=== PATIENT | female | born 1940 ===

== ENCOUNTER → 2023-01-04 10:41 | Outpatient (BNVA) | payer MEDICARE, OTHER, SELFPAY | PROVIDERS: PCP Internal Medicine; Visit Provider Internal Medicine | DX: R00.2 Palpitations (principal); I49.1 Atrial premature depolarization; I49.3 Ventricular premature depolarization; I47.1 Supraventricular tachycardia | CPT/HCPCS: 93225 ==

== ENCOUNTER 2024-11-21 08:41 | Outpatient (CLI) | payer MEDICARE, OTHER, SELFPAY ==
--- NOTE | 2024-11-21 08:47 | FL_ITS ---
WS: [id number] Exam: FL barium swallow modifd [id number] Date/Time of Exam: 11/21/2024 9:02 AM Reason For Exam: Other dysphagia Fluoroscopy time: 7min [id number] minutes # of spot films: 0 Modified barium swallow test is performed in conjunction with the speech therapy service. Oropharyngeal phase of swallowing was normal. The patient tolerated all consistencies of barium mixture foodstuffs without penetration or aspiration. There appears to be a Zenker's diverticulum along the posterior margin of the cervical esophagus at the level of C7 which contains food debris. It is also noted that there is generalized dilatation of the esophagus with tapering extending to the GE junction suggesting achalasia. The patient swallowed a barium tablet without difficulty however the tablet was retained in the mid and lower esophagus. The tablet was finally propelled into the stomach after multiple drinks of thin liquid barium. To and fro spasm of the esophagus with reflux was observed. FL/FL barium swallow modifd [id number] IMPRESSION: 1. No aspiration or penetration identified. 2. 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 3. Findings in the esophagus to suggest achalasia and gastroesophageal reflux. 4. Barium tablet was retained in the esophagus for a significant amount of time . See above discussion. Endoscopic evaluation of the esophagus is recommended f or further work-up. A separate report with recommendations will follow from the speech therapy serv ice.
== END 2024-11-21 08:42 | disposition home or self-care (01) ==
PROVIDERS: PCP Nurse Practitioner Family; Visit Provider Nurse Practitioner Family
DX: R13.10 Dysphagia, unspecified (principal); K22.5 Diverticulum of esophagus, acquired; R93.89 Abnormal findings on diagnostic imaging of other specified body structures; K22.4 Dyskinesia of esophagus
CPT/HCPCS: 74230; 92611

== ENCOUNTER 2025-03-27 10:03 | Outpatient (CLI) | payer MEDICARE, OTHER, SELFPAY ==
--- NOTE | 2025-03-27 10:30 | CT_ITS ---
WS: [id number] CT NECK TECHNIQUE: Contrast-enhanced CT of the neck with coronal and sagittal reformatted images. CLINICAL INFORMATION: DYSPHAGIA COMPARISON: None. DLP: 131.[address] scans at [facility] use at least one of these dose optimization techniques: automated exposure control; mA and/or kV adjustment per patient size (includes targeted exams where dose is matched to clinical indication); or iterative reconstruction. FINDINGS: Partially visualized LEFT pterional craniotomy with encephalomalacia in the LEFT anterior temporal lobe. Dental artifact degrades images at the tongue base. Normal posterior nasopharynx. Normal parapharyngeal fat. Paranasal sinuses are well aerated. Mastoid air cells are well aerated. No evidence of supraglottic or glottic mass. Subglottic airway is patent. Patulous thoracic esophagus visualized at the thoracic inlet likely due to achalasia also seen on the recent barium study. Parotid glands are normal. Normal submandibular glands. Tiny bilateral thyroid nodules. Vascular calcification. No cervical lymphadenopathy.Ankylosis lower cervical and upper thoracic spine with slight indentation on the thoracic esophagus at the thoracic inlet. Partially visualized Zenker's diverticulum with air-fluid level better evaluated on the prior barium study CT/CT neck w con* [id number] IMPRESSION: 1. Patulous thoracic esophagus suggestive of achalasia. 2. Partially evaluated Zenker's diverticulum better evaluated on the barium st udy. Associated air-fluid level. 3. Normal salivary glands. 4. No evidence of supraglottic or glottic mass. 5. Numerous subcentimeter nodules in the thyroid. 6. 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
[2025-03-27 10:40] LABS: Blood Urea Nitrogen 18 mg/dL (8-23)
[2025-03-27] MEDS: iohexol 350 mg/mL 500 mL Btl (per mL) IV (10:46)
== END 2025-03-27 10:04 | disposition home or self-care (01) ==
LOC: RAD 10:05
PROVIDERS: PCP Nurse Practitioner Family; Visit Provider Otolaryngology
DX: R13.14 Dysphagia, pharyngoesophageal phase (principal); R49.0 Dysphonia; K22.5 Diverticulum of esophagus, acquired; K21.9 Gastro-esophageal reflux disease without esophagitis; K22.89 Other specified disease of esophagus; E04.2 Nontoxic multinodular goiter; M45.4 Ankylosing spondylitis of thoracic region
CPT/HCPCS: 70491; 82565; 84520

== ENCOUNTER 2025-04-15 09:10 | Inpatient (IN) | payer MEDICARE, OTHER, SELFPAY ==
[2025-04-15] VITALS (35 sets, daily range): BP systolic 106–216; BP diastolic 62–122; PULSE 61–74; RESP 14–38; TEMP 36.3–36.8; O2SAT 94–99; BMI 22.1; BMI 25.5
--- NOTE | 2025-04-15 10:04 | ECG_ITS ---
[facility] Test Date: 2025-04-15 Pat Name: Robina Bowen Department: Room: Gender: Female Emergency Specialist: : 1940 Requested By: Sudhir Ron Order Number: [id number] Monteiro MD: Charlie Tellez M.D. Measurements Intervals [place] Rate: 59 P: 34 IN: 138 QRS: 1 QRSD: 98 T: 47 QT: 395 QTc: 392 Interpretive Statements SINUS BRADYCARDIA No previous ECG available for comparison Electronically Signed On 04-15-2025 17:05:14 CDT by Charlie Tellez M.D. [id number]
[2025-04-15 10:10] LABS: Hematocrit 43.7 % (36-47); Hemoglobin 13.90 g/dL (11.27-16.99); Mean Corpuscular HGB Conc 31.8 g/dL (30-55); Mean Corpuscular Hemoglobin 29.8 pg (27-33); Mean Corpuscular Volume 93.8 fl (85-98); Nucleated Red Blood Cells % 0 %; Platelet Count 284 10^3/cmm (157-399); Red Blood Count 4.66 10^6/uL (3.85-5.65); White Blood Count 8.04 10^3/uL (3.29-11.43)
--- NOTE | 2025-04-15 10:18 | ED_ITS ---
HPI - General Adult 2 General: Chief complaint: General Medical Stated complaint: High Blood Pressure Time Seen by Provider: 04/15/25 09:51 History of Present Illness: Chief complaint is elevated blood pressure. Patient states that she has been under stress due to family illness. She states she checked her blood pressure today and it was elevated. She used to be on lisinopril 5 mg daily but they took her off it because her blood pressure was good. She states she feels fine. No headache or chest pain or shortness of breath. No abdominal pain. She states she does have a long history of a hiatal hernia and she has had intermittent pain in her left chest and left shoulder blade that feels like indigestion but she states she has had that off-and-on for many years and knows what that feels like. No change from her normal symptoms. No migration of pain up or down. No pleurisy. She has some mild swelling in her ankles which she states she has every summer and is unchanged. No focal numbness weakness or tingling her arms or legs. She has had swallowing issues that she has been dealing with for a long time and has a extra pouch and she sees ENT tomorrow. She states has been going on since September and is nothing new but bothers her a lot and she thinks makes her blood pressure go up. She has had some urinary burning. Related Data Allergies Allergy/AdvReac Type Severity Reaction Status Date / Time nitrofurantoin Allergy Unknown Verified 04/15/25 09:36 Sulfa (Sulfonamide Allergy Unknown Verified 04/15/25 09:36 Antibiotics) Physical Exam 2 Narrative: EXAM NARRATIVE: Alert oriented talkative no acute distress. Pupils equal reactive. Full range ocular motion. Neck is supple. Moist mucous membranes. Posterior pharynx is clear. Heart regular rhythm with murmur. Lung sounds are clear. Abdomen soft nontender. Extremities warm well-perfused. No calf tenderness. She has some mild swelling of her ankles but no swelling above that. No drift in her arms or legs. No facial droop. Speech is clear. No JVD. Rash is warm and dry. Intact cerebellar function. No ataxia. No findings on exam or history to suggest acute stroke. Patient feels his elevated blood pressure is due to stress which may be the case. Will check her renal function and check CBC basic metabolic panel and she has some urinary symptoms so we will check UA and EKG and troponin. Patient EKG to my interpretation shows sinus bradycardia with rate 59 bpm. Course 2 Vital Signs: Vital signs: Vital Signs Temperature 97.4 F L 04/15/25 09:21 Pulse Rate 61 04/15/25 14:30 Respiratory Rate 27 H 04/15/25 14:30 Blood Pressure 194/104 04/15/25 14:30 Pulse Oximetry 99 04/15/25 14:30 Oxygen Delivery Me thod Room Air 04/15/25 09:21 MDM - General Adult Medical Decision Making Patient presents complaining that her blood pressure is elevated. Patient initial blood pressure was mildly elevated however subsequent blood pressures trended up even higher. Patient denies any chest pain or shortness of breath but when I ask about she does admit she has had some indigestion and feeling of some discomfort in her left chest and left shoulder blade but states she has had that for many years and knows exactly what it feels like it is from her hiatal hernia. She denies any new pain or shortness of breath. She states she has been under stress because she has difficulty swallowing and she is seeing ENT tomorrow. That is also been going on since early this year and is not new or changed. Denies loss of bowel or bladder control or new numbness weakness or tingling in her arms or legs. Denies any abdominal pain. Denies fever. Denies headache. Patient given a clonidine. Blood pressure still was trending up so given hydralazine 10 mg IV with improvement. I added D-dimer and this was significantly elevated so I ordered CT angio. CBC CMP troponin EKG ordered. EKG shows sinus bradycardia to my interpretation. White count is normal. Troponin was not elevated at 12. Creatinine was 0.8. Delta troponin and CT angio are pending. Urinalysis had 1+ leukocytes but not significant findings of infection. Patient troponin trended up concerning for non-STEMI with her chest pain. Patient's blood pressure did improve with the hydralazine but has trended back up again. I ordered another dose of hydralazine. I ordered aspirin 3 and [address] her CT angio did not show evidence of dissection or PE. She did have pulmonary nodule which I advised patient and family she needs to follow-up on. Her troponin trended up. I discussed with her heparin. 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 She states she is not having any headache. She states she has some slight sinus pressure but nothing that is abnormal for her or concerning to her. She does want to proceed with heparin after informed discussion of risk and benefit including GI bleeding, intracranial hemorrhage, other bleeding, and . Patient currently is pain-free. She is not having any further chest pain. She did have an episode of chest pain earlier while she was here in the emergency department but that resolved. I ordered nitroglycerin paste as well after consultation with Dr. Tellez who requested that she be kept n.p.o. after midnight and nitroglycerin 1 inch of paste every 6 hours and as needed hydralazine to control her blood pressure. Patient's heart rate currently is 65 so we will avoid labetalol currently. I discussed with Dr. Hsieh who will admit and continue patient care. Lab Data 04/15/25 10:04 04/15/25 10:04 Radiology Impressions Chest/Abdomen CTA 04/15/25 12:39 IMPRESSION: 1. No aortic pathology. 2. No acute findings. 3. Spiculated 6 mm right upper lobe nodule raises suspicion for malignancy. See references. COMMENTS: Consistent with the [place]'s Incidental Findings Committee white paper (J Am Keyana Radiol 2018): Any incidental renal lesion less than 1 cm or classified as too small to characterize, or any incidental cystic renal lesion characterized as simple-appearing, is likely benign. No follow-up imaging is recommended for these lesions per consensus recommendations based on imaging criteria. REFERENCES: Tima Melton, et al. Guidelines for Management of Incidental Pulmonary Nodules Detected on CT Images: From the Fleischner Society 2017. Radiology. 2017;284(1):228-243. Laboratory Results WBC 8.04 10^3/uL (3.29-11.43) 04/15/25 10:04 RBC 4.66 10^6/uL (3.85-5.65) 04/15/25 10:04 Hgb 13.90 g/dL (11.27-16.99) 04/15/25 10:04 Hct 43.7 % (36-47) 04/15/25 10:04 MCV 93.8 fl (85-98) 04/15/25 10:04 MCH 29.8 pg (27-33) 04/15/25 10:04 MCHC 31.8 g/dL (30-55) 04/15/25 10:04 RDW 14.2 % (12.1-15.1) 04/15/25 10:04 Plt Count 284 10^3/cmm (157-399) 04/15/25 10:04 MPV 9.7 fL (7.4-10.4) 04/15/25 10:04 Neut % (Auto) 55.9 % 04/15/25 10:04 Lymph % (Auto) 34.0 % 04/15/25 10:04 Grainger % (Auto) 8.1 % 04/15/25 10:04 Eos % (Auto) 1.4 % 04/15/25 10:04 Baso % (Auto) 0.4 % 04/15/25 10:04 Neut # (Auto) 4.50 10^3/uL (1.8-7.7) 04/15/25 10:04 Lymph # (Auto) 2.7 10^3/uL (0.8-4.8) 04/15/25 10:04 Grainger # (Auto) 0.7 10^3/uL (0.2-0.9) 04/15/25 10:04 Eos # (Auto) 0.1 10^3/uL (0.0-0.8) 04/15/25 10:04 Baso # (Auto) 0.0 10^3/uL (0.0-0.1) 04/15/25 10:04 Nucleated RBC % (auto) 0 % 04/15/25 10:04 Nucleated RBCs # 0.0 /100WBC 04/15/25 10:04 D-Dimer 3.06 ug/mLFEU (0-0.59) H 04/15/25 10:04 Sodium 143 mmol/L (136-145) 04/15/25 10:04 Potassium 4.1 mmol/L (3.5-5.1) 04/15/25 10:04 Chloride 106 mmol/L (98-107) 04/15/25 10:04 Carbon Dioxide 26 mmol/L (22-29) 04/15/25 10:04 Anion Gap 15.1 (5-19) 04/15/25 10:04 BUN 17 mg/dL (8-23) 04/15/25 10:04 Creatinine 0.8 mg/dL (0.5-0.9) 04/15/25 10:04 GFR Calculation Not Reportable 04/15/25 10:04 Glucose 106 mg/dL (65-115) 04/15/25 10:04 Calculated Osmolality 298 mOsm/kg (285-295) H 04/15/25 10:04 Calcium 10.1 mg/dL (8.5-10.5) 04/15/25 10:04 Troponin T Baseline 12 ng/L (0-10) H 04/15/25 10:04 Troponin T 120 Minute 41.21 ng/L (0-10) H 04/15/25 12:12 Delta Troponin T 29.21 ABS# (0-10) H* 04/15/25 12:12 Urine Color Yellow (Yellow) 04/15/25 09:58 Urine Appearance Clear (CLEAR) 04/15/25 09:58 Urine pH 7 (5-7) 04/15/25 09:58 Ur Specific [place] 1.007 (1.005-1.030) 04/15/25 09:58 Urine Protein Negative (Negative) 04/15/25 09:58 Urine Glucose (UA) Norm (Normal) 04/15/25 09:58 Urine Ketones Negative (Negative) 04/15/25 09:58 Urine Blood Non-haemolysed trace (Negative) 04/15/25 09:58 Urine Nitrate Negative (Negative) 04/15/25 09:58 Urine Bilirubin Negative (Negative) 04/15/25 09:58 Urine Urobilinogen 1.0 mg/dL (Negative) 04/15/25 09:58 Ur Leukocyte Esterase 1+ (Negative) H 04/15/25 09:58 Urine RBC None /hpf (0-2) 04/15/25 09:58 Urine WBC 0-4 /hpf (0-5) H 04/15/25 09:58 Ur Squamous Epith Cells 0-4 /hpf (0-5) H 04/15/25 09:58 Amorphous Sediment Not Reportable 04/15/25 09:58 Urine Bacteria Trace /hpf (NONE) 04/15/25 09:58 All radiology interpretation(s) finalized by discharge Discharge Plan Discharge Patient Disposition: Admitted As Inpatient Clinical Impression: Acute non-ST elevation myocardial infarction (NSTEMI), Hypertensive crisis, Pulmonary nodule Condition: Stable Coding Level of Care Code ED Code Enforcement Officer for Eunice Stapleton
[2025-04-15 10:29] LABS: Troponin(5th) Baseline 12 ng/L (0-10)
[2025-04-15 10:33] LABS: Glucose Urine UA Norm (Normal); Specific Gravity, Urine 1.007 (1.005-1.030)
[2025-04-15 10:34] LABS: Anion Gap 15.1 (5-19); Blood Urea Nitrogen 17 mg/dL (8-23); Calcium 10.1 mg/dL (8.5-10.5); Carbon Dioxide 26 mmol/L (22-29); Chloride 106 mmol/L (98-107); Glucose 106 mg/dL (65-115); Osmolality Calculated 298 mOsm/kg (285-295); Potassium 4.1 mmol/L (3.5-5.1); Sodium 143 mmol/L (136-145)
[2025-04-15 10:34] LABS: Nitrate Urine Negative (Negative)
[2025-04-15] MEDS: hyDRALAzine 20 mg/mL INJ 1 mL 10 MG IVP ×2 (11:49→15:28)
--- NOTE | 2025-04-15 12:39 | CTR_ITS ---
PROCEDURE INFORMATION: Exam: CTA Chest With Contrast CTA Abdomen With Contrast Exam date and time: 04/15/2025 12:55 PM Age: 85 years old Clinical indication: Radiating; Abdominal pain; Generalized; Additional info: Chest pain, aorta protocol TECHNIQUE: Imaging protocol: Computed tomographic angiography of the chest with contrast. Exam focused on the arteries. Computed tomographic angiography of the abdomen with contrast. Exam focused on the arteries. 3D rendering (Not supervised by radiologist): MIP and/or 3D reconstructed images were created by the technologist. Radiation optimization: All CT scans at this facility use at least one of these dose optimization techniques: automated exposure control; mA and/or kV adjustment per patient size (includes targeted exams where dose is matched to clinical indication); or iterative reconstruction. Contrast material: OMNIPAQUE 350; Contrast volume: 100 ml; Contrast route: INTRAVENOUS (IV); COMPARISON: No relevant prior studies available. RADIATION DOSE METRICS: Total DLP (mGy-cm): 943.5 FINDINGS: VASCULATURE: Pulmonary arteries: Normal. No pulmonary emboli. Aorta: No aortic aneurysm. No aortic dissection. Celiac trunk and mesenteric arteries: No occlusion or significant stenosis. Renal arteries: No occlusion or significant stenosis. CHEST: Lungs: Spiculated 6 mm right upper lobe nodule image 49 series 24. For patients at low risk (minimal or absent history of smoking and of other known risk factors), recommend CT Chest at 6-12 months, then consider CT Chest at 18-24 months. For patients at high risk (history of smoking or of other known risk factors), recommend CT Chest at 6-12 months, then CT Chest at 18-24 months. (Reference: Tima). Calcified 6 mm left upper lobe granuloma. Image 41 series 23. Pleural spaces: Unremarkable. No pneumothorax. No pleural effusion. Heart: Unremarkable. No cardiomegaly. No pericardial effusion. ABDOMEN AND PELVIS: Liver: No mass. Gallbladder and biliary ducts: Post cholecystectomy. Pancreas: Unremarkable. No mass. No ductal dilation. Spleen: There is a solitary splenic calcification consistent with an old calcified granuloma. Adrenal glands: Unremarkable. No mass. Kidneys: There are multiple simple renal cysts bilaterally of varying size. Stomach and bowel: Unremarkable. No obstruction. No mucosal thickening. Intraperitoneal space: Unremarkable. No free air. No significant fluid collection. Lymph nodes: Unremarkable. No enlarged lymph nodes. Bones/joints: Unremarkable. No acute fracture. Soft tissues: Unremarkable. CT/CT angio chest abd 94418/[id number] IMPRESSION: 1. No aortic pathology. 2. No acute findings. 3. Spiculated 6 mm right upper lobe nodule raises suspicion for malignancy. See references. COMMENTS: Consistent with the [employer] [employer]'s Incidental Findings Committee white paper (J Am Keyana Radiol 2018): Any incidental renal lesion less than 1 cm or classified as too small to characterize, or any incidental cystic renal lesion characterized as simple-appearing, is likely benign. No follow-up imaging is recommended for these lesions per consensus recommendations based on imaging criteria. REFERENCES: Tima H, et al. Guidelines for Management of Incidental Pulmonary Nodules Detected on CT Images: From the Fleischner Society 2017. Radiology. 2017;284(1):228-243.
[2025-04-15 12:52] LABS: Troponin 5 2HR 41.21 ng/L (0-10)
[2025-04-15 12:54] LABS: Troponin 5 2HR Delta 29.21 ABS# (0-10)
[2025-04-15] MEDS: iohexol 350 mg/mL 500 mL Btl (per mL) IV (13:02)
[2025-04-15] MEDS: heparin drip 25,000 UNIT/500 ML PREMIX 18 UNIT IV (15:49)
[2025-04-15] MEDS: heparin 5,000 unit/mL INJ 1 mL IVP (15:50)
[2025-04-15] MEDS: nitroglycerin 1 gm/inch oint Pkt 1 INCH TOPICAL (15:50)
--- NOTE | 2025-04-15 15:51 | PC.NURSE ---
PATIENT WEIGHT OF 137 LB, 62.27 KG, ROUNDED DOSING TO 64 KG.
--- NOTE | 2025-04-15 16:03 | PM.HP ---
Providers/Chief Complaint Primary Care Provider: CAIO Higgins Chief Complaint: High Blood Pressure History of Present Illness Robina Bowen is a 85 year old female with history of hypertension And previously used to be on lisinopril however no longer takes it as her doctor took her off presented to the hospital today for complaint of very high blood pressure that she incidentally noted. She states she has been under a lot of family stress lately and has been checking it every day. She checked it yesterday and it was high around 170 systolic and this morning it was 200 systolic. She states that she does have a hiatal hernia and has been having some on and off chest pain and usually has indigestion however she knows what that feels like and today she experienced chest tightness which was new for her. She has not really had chest tightness like this before. This chest tightness was also radiating up to her shoulder blade. She has also noticed some swelling in her ankles which is at her baseline. She is not on any Lasix at home. She states she has a abnormal neck CT with possible diverticulum that she has been completing workup for as an outpatient and was supposed to see ENT tomorrow 04/16. Now that she is in the hospital she has canceled that appointment. Denies active chest pain at this time shortness of breath nausea vomiting. She does state that due to her throat issue she sometimes regurgitates food and has a constant postnasal drip and her throat feels raspy because of it. Family is at bedside. Daughter and [id number] are both present. They aided in providing history. Patient is a somewhat poor historian. ER course: On arrival to ER blood pressure 216/119. Patient was initially managed in the ER and received hydralazine 10 IV x 2 and was eventually placed on a nitro patch every 6 hours. Initial troponin 12, 41.21, 73.66. Delta Trope 61 at 6 hours. Cardiology was consulted. D-dimer 3.06. CTA chest abdomen shows no aortic pathology no acute findings spiculated 6 mm right upper lung nodule raise suspicion for malignancy. Medications/Allergies Home Medications ?Medication ?Instructions ?Recorded ?Confirmed ?Last Taken ?Type acetaminophen 325 mg tablet 650 mg PO QID PRN Fever Or Pain 04/15/25 04/15/25 Unknown History (Tylenol) aspirin 81 mg tablet,delayed 81 mg PO DAILY 04/15/25 04/15/25 04/14/25 History release (Christian Low Dose Aspirin) fexofenadine 60 mg tablet (Verenice 60 mg PO BID PRN allergies 04/15/25 04/15/25 Unknown History Allergy) metoprolol succinate 50 mg 50 mg PO DAILY 04/15/25 04/15/25 04/13/25 History tablet,extended release 24 hr krhvbmtv-ery-ahwng ac 400 1 tab PO DAILY 04/15/25 04/15/25 Unknown History mcg-calcium carb 500 mg-vit K1 20 mcg tablet pantoprazole 40 mg tablet,delayed 40 mg PO DAILY 04/15/25 04/15/25 04/14/25 History release Allergies Allergy/AdvReac Type Severity Reaction Status Date / Time nitrofurantoin Allergy Unknown Verified 04/15/25 09:36 Sulfa (Sulfonamide Allergy Unknown Verified 04/15/25 09:36 Antibiotics) Vitals/I&O/Wt Last Vital Signs Temp 97.4 F L 04/15/25 09:21 Pulse 68 04/15/25 15:50 Resp 27 H 04/15/25 14:30 BP 154/74 04/15/25 15:50 Pulse Ox 99 04/15/25 14:30 O2 Del Method Room Air 04/15/25 09:21 Weight last 48 hrs Weight 62.142 kg Physical Exam Narrative: General: Alert oriented x3, patient seen sitting up in bed appearing comfortable at this time family at bedside. HEENT: Normocephalic, atraumatic, EOMI, breathing room air Cardio: Regular rate rhythm, normal S1-S2, Respiratory: Good bilateral air entry, no wheezes no rhonchi appreciated GI: Abdomen soft, nontender, nondistended, bowel sounds + Behavior: Appropriate and cooperative Extremities: Trace edema ankles bilaterally no cyanosis Data 04/15/25 10:04 04/15/25 10:04 A&P Assessment and plan 1. Acute non-ST elevation myocardial infarction (NSTEMI): 2. Hypertensive crisis: 3. Pulmonary nodule: 4. Zenkers diverticulum: 5. Achalasia: Plan: #Hypertensive urgency #Chest pain/chest tightness #NSTEMI #Zenker's diverticulum with food debris #Achalasia, GERD -Patient's elevated troponin most likely demand ischemia type II GA secondary to hypertensive urgency however cardiac ischemia cannot be ruled out. Placed on heparin drip x 48 hours ? Continue on aspirin, Plavix ? Discussed with cardiology at length. Plan to do cardiac stress test in AM. ? Keep n.p.o. at midnight tonight. ? Continue on oral soft bite-size diet at this time. Note patient will have recurrent regurgitation secondary to her Zenker's diverticulum. ? Recently was supposed to see ENT on 04/16 however appointment has been canceled. She will need to follow-up with them as an outpatient after discharge. ? GI referral also recommended at discharge secondary to achalasia. Patient may need balloon dilation. ? We will continue her GI workup outpatient ? Appreciate cardiology consultation today. ?Serial EKGs, troponin series complete ? Check CBC CMP mag in a.m. ? Hypertension: Goal to reduce only 25% in for 6 hours. ? We will continue on amlodipine 10 daily. I will stop Nitropatch at this time. ? Hydralazine 10 every 4 hours as needed ? Check TSH, lipid panel, hemoglobin A1c - Check ECHO - Add atorvastatin 80 Full code DVT prophylaxis: On heparin drip PDMP PDMP Reviewed: Not Reviewed Attestations Medical Necessity Statement*: Chest pain workup, NSTEMI, > 2 midnight stay Diagnoses Acute non-ST elevation myocardial infarction (NSTEMI) I21.4 Hypertensive crisis I16.9 Pulmonary nodule R91.1 Zenkers diverticulum K22.5 Achalasia K22.0
[2025-04-15 16:32] LABS: Troponin 5 6HR 73.66 ng/L (0-10)
[2025-04-15 16:36] LABS: Troponin 5 6HR Delta 61.66 ng/L (0-12)
--- NOTE | 2025-04-15 18:21 | USCV_ITS ---
Andrés Robina Age: 85 Gender: F : 1940 Exam Date: 04/15/2025 18:42 Ordering Phys: Isela Hsieh MD Technologist: Fran Landeros Exam Location: [facility] [place] Indication: chest pain, nstemi BP: 163 / 85 HR: 64 Rhythm: Sinus Technical Quality: Adequate MEASUREMENTS (Male / Female) Normal Values 2D ECHO LV Diastolic Diameter PLAX 4.7 cm 4.2 - 5.9 / 3.9 - 5.3 cm IVS Diastolic Thickness 0.9 cm 0.6 - 1.0 / 0.6 - 0.9 cm IVS Systolic Thickness 1.5 cm LVPW Diastolic Thickness 1.1 cm 0.6 - 1.0 / 0.6 - 0.9 cm LVPW Systolic Thickness 1.7 cm LVOT Diameter 2.0 cm LV Ejection Fraction 2D Teich 66.3 % LV Ejection Fraction MOD 4C 71.7 % LV Ejection Fraction MOD 2C 55.7 % LV Ejection Fraction 2C AL 59.2 % LA Diameter 3.8 cm RA Systolic Volume 4C AL 44.4 ml RA Systolic Volume 4C MOD 42.5 ml LA Sys Volume AL 49.4 cm cubed LA Sys Volume Index AL 29.0 cm cubed/m squared Aorta at Sinotubular Diameter 2.0 cm IVC Diameter 1.7 cm M-MODE LA Ao Ratio MM 1.8 AV Cusp Separation MM 1.7 cm DOPPLER AV Peak Velocity 141.0 cm/s LVOT Peak Velocity 82.0 cm/s AV Area Cont Eq vti 1.7 cm squared AV Area Cont Eq pk 1.8 cm squared MV Peak Velocity 105.0 cm/s MV Area PHT 2.1 cm squared Mitral E to A Ratio 0.7 TR Peak Velocity 272.0 cm/s TR Peak Gradient 29.6 mmHg TR Mean Velocity 229.0 cm/s TR Mean Gradient 21.8 mmHg TR Velocity Time Integral 81.5 cm PV Peak Velocity 76.3 cm/s RV Ejection Time 0.3 s FINDINGS Left Ventricle Normal left ventricular size, systolic function and wall thickness, with no regional wall motion abnormalities. Left ventricular ejection fraction is 66 %. Normal diastolic function. Right Ventricle Normal right ventricular size and systolic function. Right Atrium Normal right atrial size. Left Atrium Normal left atrial size. Mitral Valve Mild mitral valve regurgitation. Aortic Valve No aortic valve stenosis. Trace aortic valve regurgitation. Tricuspid Valve Trace tricuspid valve regurgitation. Normal pulmonary pressure Pulmonic Valve Mild pulmonary valve regurgitation. Pericardium No pericardial effusion. Aorta Normal size aortic root and proximal ascending aorta. IVC Normal inferior vena cava. CONCLUSIONS 1. Normal LV and RV size and function 2. Mild mitral valve regurgitaiton Charlie Tellez MD, FACC (Electronically Signed) Final Date: 16 April 2025 11:59 S
--- NOTE | 2025-04-15 18:25 | ECG_ITS ---
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
[2025-04-15 18:53] LABS: Estmated Average Glucose 111; Hemoglobin A1C 5.5 % (4.0-6.0)
[2025-04-15 19:03] LABS: Cholesterol 208 mg/dL (0-200); HDL Cholesterol 60 mg/dL (60-100); NT Pro B Type Natriuretic Pept 1198 pg/mL (0-450); Thyroid Stimulating Hormone 3.92 uIU/mL (0.27-4.20); Triglycerides 94 mg/dL (0-150)
[2025-04-15 22:17] LABS: INR 1.13 (0.8-1.2); Prothrombin Time 15.30 SECONDS (12.1-14.9)
[2025-04-15 22:30] LABS: Partial Thromboplastin Time 149.5 SECONDS (23.9-36.7)
[2025-04-15] MEDS: lidocaine 2% viscous 15 ML, aluminum-mag hydrox-simethicon 30 ML, sucralfate oral liq 1 GM PO (22:55)
[2025-04-16] VITALS (7 sets, daily range): BP systolic 125–157; BP diastolic 54–75; PULSE 58–77; RESP 16–19; TEMP 36.6; O2SAT 97–99
[2025-04-16] MEDS: ondansetron 2 mg/ML SDV 2 mL 4 MG IVP ×2 (01:59→08:00)
[2025-04-16 04:31] LABS: Hematocrit 37.8 % (36-47); Hemoglobin 12.70 g/dL (11.27-16.99); Mean Corpuscular HGB Conc 33.6 g/dL (30-55); Mean Corpuscular Hemoglobin 30.7 pg (27-33); Mean Corpuscular Volume 91.3 fl (85-98); Nucleated Red Blood Cells % 0 %; Platelet Count 256 10^3/cmm (157-399); Red Blood Count 4.14 10^6/uL (3.85-5.65); White Blood Count 8.60 10^3/uL (3.29-11.43)
[2025-04-16 05:08] LABS: Alanine Aminotransferase 8 U/L (0-33); Albumin Level 3.7 g/dL (3.5-5.2); Alkaline Phosphatase 27 U/L (35-105); Anion Gap 12.3 (5-19); Aspartate Amino Transferase 18 U/L (0-32); Blood Urea Nitrogen 14 mg/dL (8-23); Calcium 9.1 mg/dL (8.5-10.5); Carbon Dioxide 26 mmol/L (22-29); Chloride 100 mmol/L (98-107); Creatinine Clr Calc Pharmacy 48.1606; Globulin 3.1 g/dL (1.3-4.6); Glucose 110 mg/dL (65-115); Magnesium 1.9 mg/dL (1.7-2.3); Osmolality Calculated 281 mOsm/kg (285-295); Potassium 3.3 mmol/L (3.5-5.1); Sodium 135 mmol/L (136-145); Total Protein 6.8 g/dL (6.6-8.7)
[2025-04-16 06:12] LABS: Partial Thromboplastin Time 92.5 SECONDS (23.9-36.7)
--- NOTE | 2025-04-16 07:08 | PC.NURSE ---
Notified Dr. Bright regarding potassium of 3.3. Received orders for 40 meq of KCL once.
--- NOTE | 2025-04-16 07:52 | PC.NURSE ---
Patient off the floor to [facility]
--- NOTE | 2025-04-16 08:49 | PC.NURSE ---
Patient received to the floor. Dr Hsieh into see patient. Family at bedside.
[2025-04-16] MEDS: metoclopramide 5 mg/mL SDV 2 mL IVP (09:04)
--- NOTE | 2025-04-16 09:07 | PC.NURSE ---
Patient is nauseous. She received last dose of zofran at 0758. Informed Dr Hsieh and received telephone order for Reglan 5mg IVP x1 now.
--- NOTE | 2025-04-16 10:04 | P.CONIM_ITS ---
<Statement entered by Charlie Tellez MD - 04/16/25 13:39> Patient was evaluated and cared for in conjunction with an advanced practice practitioner. I personally examined the patient and reviewed the chart and all pertinent data including imaging, telemetry, and laboratory results. I discussed the patient in detail with the advanced practice practitioner. Please see their note for complete consult note, testing results and agreed upon plan of care for the patient. GENERAL: Patient is alert, awake and oriented x3. Laying flat in bed in NAD NECK: No JVD or carotid bruit HEART: Regular S1 and S2, no murmur LUNGS: Clear to auscultation bilaterally. EXTREMITIES: Lower extremities with out edema bilaterally. Stress test unremarkable. BP now controlled. Can be discharge on current medical regimen and fu in our office in 2 - 3 weeks with BP log Providers/Reason For Consult 2 Consulting Physician/Specialty*: Dr Tellez, cardiology Reason for Consult*: Elevated troponin, hypertensive urgency Requesting Physician: Isela Hsieh MD Attending Physician: Isela Hsieh MD Primary Care Provider: CAIO Higgins History of Present Illness History of Present Illness Robina Bowen is a 85 year old female with past medical history of hypertension, hiatal hernia. She presented to the emergency room yesterday after 1 week of consistently elevated blood pressure, systolic around 200. She had some chest tightness which was unusual. Troponin series: 12-> 41-> 73. D- dimer 3.06, other laboratory unremarkable. She received hydralazine which controlled her blood pressure initially, currently on aspirin, Plavix, atorvastatin, amlodipine 10 mg daily and heparin infusion. Echocardiogram and stress test are pending read. Medications/Allergies Home Medications ?Medication ?Instructions ?Recorded ?Confirmed ?Last Taken ?Type acetaminophen 325 mg tablet 650 mg PO QID PRN Fever Or Pain 04/15/25 04/15/25 Unknown History (Tylenol) aspirin 81 mg tablet,delayed 81 mg PO DAILY 04/15/25 0 04/15/25 04/14/25 History release (Christian Low Dose Aspirin) fexofenadine 60 mg tablet (Verenice 60 mg PO BID PRN al lergies 04/15/25 04/15/25 Unknown History Allergy) metoprolol succinate 50 mg 50 mg PO DAILY 04/15/2504/13/25 History tablet,extended release 24 hr gnldjvab-xwb-qvhgq ac 400 1 tab PO DAILY 04/15/2503/30 Unknown History mcg-calcium carb 500 mg-vit K1 20 mcg tablet pantoprazole 40 mg tablet,delayed 40 mg PO DAILY 04/1504/15/25 04/14/25 History release Allergies Allergy/AdvReac Type Severity Reaction Status Date / Time nitrofurantoin Allergy Unknown Verified 04/15/25 09:36 Sulfa (Sulfonamide Allergy Unknown Verified 04/15/25 09:36 Antibiotics) Current Medications Generic Name Dose Route Start Last Admin Trade Name Freq PRN Reason Stop Dose Admin Acetaminophen 650 mg 04/15/25 18:20 04/16/25 00:23 Acetaminophen 325 Mg Tablet PO 650 mg Q6H PRN Administration Mild/Mod Pain Or Temp >/= 101 Amlodipine Besylate 10 mg 04/16/25 09:00 04/16/25 08:41 Amlodipine 10 Mg Tablet PO 10 mg DAILY ROBIN Administration Aspirin 81 mg 04/16/25 09:00 04/16/25 08:41 Aspirin 81 Mg Ec Tablet PO 81 mg DAILY ROBIN Administration Atorvastatin Calcium 80 mg 04/15/25 21:00 04/15/25 22:54 Atorvastatin 40 Mg Tablet PO 80 mg BEDTIME ROBIN Administration Clopidogrel Bisulfate 75 mg 04/15/25 18:25 04/16/25 08:41 Clopidogrel 75 Mg Tablet PO 75 mg DAILY ROBIN Administration Heparin Sodium/Sodium Chloride 25,000 unit in 500 mls @ 0 mls/hr 04/15/25 15:30 04/16/25 06:26 Heparin Drip IV 8.85 unit/kg/hr CONT [facility] 11 mls/hr Protocol Titration Per Protocol Sodium Chloride 1,000 mls @ 75 mls/hr 04/15/25 18:30 04/16/25 07:52 Sodium Chloride 0.9% IV Not Given .[id number] [facility] Ondansetron HCl 4 mg 04/15/25 18:20 04/16/25 01:59 Ondansetron 2 Mg/Ml Sdv 2 Ml IVP 4 mg Q8H PRN Administration vomiting, or N/V if npo Ondansetron HCl 4 mg 04/16/25 06:22 04/16/25 08:00 Ondansetron 2 Mg/Ml Sdv 2 Ml IVP 4 mg Q2M PRN Administration NAUSEA Pantoprazole Sodium 40 mg 04/15/25 21:34 04/16/25 08:[address] 40 Mg Tablet PO 40 mg DAILY ROBIN Administration Vitals/I&O/Wt Last Vital Signs Temp 97.9 F 04/16/25 08:00 Pulse 77 04/16/25 09:29 Resp 16 04/16/25 09:29 BP 157/75 04/16/25 08:00 Pulse Ox 98 04/16/25 09:29 O2 Del Method Room Air 04/16/25 09:29 04/15/25 04/16/25 04/16/25 22:59 06:59 14:59 Intake Total 245.1 / 352.433 107.333 / 352.433 0 / 0 Balance 245.1 / 352.433 107.333 / 352.433 0 / 0 Weight last 48 hrs Weight 143 lb 4.8 oz Weight 144 lb 5 oz Weight 137 lb Weight 137 lb Physical Exam 2 Const: COMMON NORMALS: no acute distress and patient oriented x3 GENERAL APPEARANCE: cooperative and comfortable ORIENTATION/CONSCIOUSNESS: Yes awake, Yes oriented to person, Yes oriented to place and Yes oriented to time Chest: COMMONS NORMALS: normal inspection of the chest and normal palpation of entire chest wall CHEST: Yes Symmetrical chest wall rise Resp: COMMON NORMALS: normal respiratory effort, No retractions, No use of accessory muscles and clear to auscultation bilaterally EFFORT & INSPECTION: Yes symmetric chest movement AUSCULTATION: clear to auscultation bilaterally Cardio: COMMON NORMALS: regular rate, regular rhythm, S1 normal heart sound present, S2 normal heart sound present, No gallops present (Cardio), No clicks present (Cardio), No murmurs present (Cardio) and No rub (Cardio) RATE: r egular rate RHYTHM: regular rhythm HEART SOUNDS: S1 normal heart sound present and S2 normal heart sound present PERIPHERAL PULSES: radial pulses present Extremity: COMMON NORMALS: no pedal edema Neuro: COMMON NORMALS: patient oriented x3 and moves all extremities S ENSORIUM/ORIENTATION: Yes oriented to person, Yes oriented to place and Yes oriented to time Data 04/16/25 02:09 04/16/25 02:09 A&P Assessment and plan 1. Acute non-ST elevation myocardial infarction (NSTEMI): 2. Hypertensive crisis: 3. Pulmonary nodule: Plan: Blood pressure is currently controlled. She does not know of any particular triggers leading up to this hypertensive event. Will await results of imaging for further plan. At the time of my exam she is chest pain-free. PDMP PDMP Reviewed: Not Reviewed Coding Level of Care Code Acute Code for Chg Fwd Diagnoses Acute non-ST elevation myocardial infarction (NSTEMI) I21.4 Hypertensive crisis I16.9 Pulmonary nodule R91.1
--- NOTE | 2025-04-16 11:04 | P.PN_ITS ---
Subjective 2 Subjective: seen today pt complains of nausea after stress test Vitals/I&O/Wt Last Vital Signs Temp 97.9 F 04/16/25 08:00 Pulse 77 04/16/25 09:29 Resp 16 04/16/25 09:29 BP 157/75 04/16/25 08:00 Pulse Ox 98 04/16/25 09:29 O2 Del Method Room Air 04/16/25 09:29 04/15/25 04/16/25 04/16/25 22:59 06:59 14:59 Intake Total 245.1 / 245.1 107.333 / 352.433 0 / 0 Balance 245.1 / 245.1 107.333 / 352.433 0 / 0 Weight last 48 hrs Weight 65 kg Weight 65.459 kg Weight 62.142 kg Weight 62.142 kg Physical Exam 2 Narrative: General: Alert oriented x3, patient seen sitting up in bed appearing comfortable at this time family at bedside. HEENT: Normocephalic, atraumatic, EOMI, breathing room air Cardio: Regular rate rhythm, normal S1-S2, Respiratory: Good bilateral air entry, no wheezes no rhonchi appreciated GI: Abdomen soft, nontender, nondistended, bowel sounds + Behavior: Appropriate and cooperative Extremities: Trace edema ankles bilaterally no cyanosis Data 04/16/25 02:09 04/16/25 02:09 A&P Assessment and plan 1. Acute non-ST elevation myocardial infarction (NSTEMI): 2. Hypertensive crisis: 3. Pulmonary nodule: 4. Zenkers diverticulum: 5. Achalasia: Plan: #Hypertensive urgency #Chest pain/chest tightness #NSTEMI #Zenker's diverticulum with food debris #Achalasia, GERD -Patient's elevated troponin most likely demand ischemia type II RI secondary to hypertensive urgency however cardiac ischemia cannot be ruled out. Placed on heparin drip x 48 hours ? Continue on aspirin, Plavix ? Discussed with cardiology at length. Plan to do cardiac stress test in AM. ? Keep n.p.o. at midnight tonight. ? Continue on oral soft bite-size diet at this time. Note patient will have recurrent regurgitation secondary to her Zenker's diverticulum. ? Recently was supposed to see ENT on 04/16 however appointment has been canceled. She will need to follow-up with them as an outpatient after discharge. ? GI referral also recommended at discharge secondary to achalasia. Patient may need balloon dilation. ? We will continue her GI workup outpatient ? Appreciate cardiology consultation today. ?Serial EKGs, troponin series complete ? Check CBC CMP mag in a.m. ? Hypertension: Goal to reduce only 25% in for 6 hours. ? We will continue on amlodipine 10 daily. I will stop Nitropatch at this time. ? Hydralazine 10 every 4 hours as needed ? Check TSH, lipid panel, hemoglobin A1c - Check ECHO - Add atorvastatin 80 Full code DVT prophylaxis: On heparin drip 04/16/2025 pt nausated after stress test keep on clear liquids start clears as tolerated order scopolamine path echo pending continue heparin gtt x48 hours cardio consulted, appreciate recommendations continue amlodipine 10 daily BP 150's TSH 3.96, BNP 1198, stop IV fluids PDMP PDMP Reviewed: Not Reviewed Attestations 2 Medical Necessity Statement*: Chest pain workup, NSTEMI, > 2 midnight stay Diagnoses Acute non-ST elevation myocardial infarction (NSTEMI) I21.4 Hypertensive crisis I16.9 Pulmonary nodule R91.1 Zenkers diverticulum K22.5 Achalasia K22.0
[2025-04-16 12:35] LABS: Partial Thromboplastin Time 56.9 SECONDS (23.9-36.7)
--- NOTE | 2025-04-16 13:37 | PC.NURSE ---
Patient reports relief of nausea post scopalomine patch placement as documented.
--- NOTE | 2025-04-16 14:00 | PC.NURSE ---
Patient has been up ambulating and feels great. Has had juice. She reports feeling good. No nausea. Informed Dr Hsieh.
--- NOTE | 2025-04-16 14:10 | PC.NURSE ---
Heparin drip d/c for discharge. IV removed intact.
--- NOTE | 2025-04-16 15:46 | PM.DCS ---
Discharge Providers Date of Admission: 04/15/25 15:36 Date of Discharge: April 16, 2025 Attending Provider at Admission: Isela Hsieh MD Attending Provider at Discharge: Isela Hsieh MD Primary Care Provider: CAIO Higgins Diagnoses at Discharge Discharge Diagnosis 1. Acute non-ST elevation myocardial infarction (NSTEMI): 2. Hypertensive crisis: 3. Pulmonary nodule: 4. Zenkers diverticulum: 5. Achalasia: Reason for Visit Reason for Visit: High Blood Pressure Hospital Course Hospital Course Patient presented to the hospital with hypertensive urgency and chest tightness. Cardiology was consulted. Heparin drip was completed for 48 hours. He did have mild nausea after stress testing. Cardiac stress test was complete. He was discharged home in stable condition with adjustment of his home medications. She was discharged on amlodipine 10 daily and metoprolol succinate 50 daily. She will follow-up with cardiology as an outpatient. Physical Exam Narrative: General: Alert oriented x3, patient seen sitting up in bed appearing comfortable at this time family at bedside. HEENT: Normocephalic, atraumatic, EOMI, breathing room air Cardio: Regular rate rhythm, normal S1-S2, Respiratory: Good bilateral air entry, no wheezes no rhonchi appreciated GI: Abdomen soft, nontender, nondistended, bowel sounds + Behavior: Appropriate and cooperative Extremities: Trace edema ankles bilaterally no cyanosis Discharge Data Studies Completed and Pending Completed Studies During Hospitalization Category Date Time Status CTA chest abdomen [CT angio chest abd [id number]] Stat Cat Scan 04/15/25 12:39 Completed Sestamibi Stress Test Request Routine Exams 04/15/25 18:25 Draft NM sam perf SPECT r/s* [id number] Routine Nuc Med 04/16/25 18:25 Completed CV. echo complete* [id number] Stat Ultrasound 04/15/25 18:21 Completed Pending at discharge Category Date Time Status Basic Metabolic Panel AM LABS Lab 04/17/25 04:00 Ordered Complete Blood Count w/Auto AM LABS Lab 04/17/25 04:00 Ordered Magnesium AM LABS Lab 04/17/25 04:00 Ordered PTT [Partial Thromboplastin Time] Timed Lab 04/16/25 19:30 Ordered Platelet Count Q2D Lab 04/17/25 04:00 Ordered Platelet Count Q2D Lab 04/19/25 04:00 Ordered Radiology Impressions Chest/Abdomen CTA 04/15/25 12:39 IMPRESSION: 1. No aortic pathology. 2. No acute findings. 3. Spiculated 6 mm right upper lobe nodule raises suspicion for malignancy. See references. COMMENTS: Consistent with the [employer]'s Incidental Findings Committee white paper (J Am Keyana Radiol 2018): Any incidental renal lesion less than 1 cm or classified as too small to characterize, or any incidental cystic renal lesion characterized as simple-appearing, is likely benign. No follow-up imaging is recommended for these lesions per consensus recommendations based on imaging criteria. REFERENCES: Tima Melton et al. Guidelines for Management of Incidental Pulmonary Nodules Detected on CT Images: From the Fleischner Society 2017. Radiology. 2017;284(1):228-243. Laboratory Results WBC 8.60 10^3/uL (3.29-11.43) 04/16/25 02:09 RBC 4.14 10^6/uL (3.85-5.65) 04/16/25 02:09 Hgb 12.70 g/dL (11.27-16.99) 04/16/25 02:09 Hct 37.8 % (36-47) 04/16/25 02:09 MCV 91.3 fl (85-98) 04/16/25 02:09 MCH 30.7 pg (27-33) 04/16/25 02:09 MCHC 33.6 g/dL (30-55) D 04/16/25 02:09 RDW 14.3 % (12.1-15.1) 04/16/25 02:09 Plt Count 256 10^3/cmm (157-399) 04/16/25 02:09 MPV 10.4 fL (7.4-10.4) 04/16/25 02:09 Neut % (Auto) 66.5 % 04/16/25 02:09 Lymph % (Auto) 24.5 % 04/16/25 02:09 [place] % (Auto) 8.3 % 04/16/25 02:09 Eos % (Auto) 0.2 % 04/16/25 02:09 Baso % (Auto) 0.3 % 04/16/25 02:09 Neut # (Auto) 5.71 10^3/uL (1.8-7.7) 04/16/25 02:09 Lymph # (Auto) 2.1 10^3/uL (0.8-4.8) 04/16/25 02:09 [place] # (Auto) 0.7 10^3/uL (0.2-0.9) 04/16/25 02:09 Eos # (Auto) 0.0 10^3/uL (0.0-0.8) 04/16/25 02:09 Baso # (Auto) 0.0 10^3/uL (0.0-0.1) 04/16/25 02:09 Nucleated RBC % (auto) 0 % 04/16/25 02:09 Nucleated RBCs # 0.0 /100WBC 04/16/25 02:09 PT 15.30 SECONDS (12.1-14.9) H 04/15/25 21:39 INR 1.13 (0.8-1.2) 04/15/25 21:39 APTT 56.9 SECONDS (23.9-36.7) H 04/16/25 12:18 D-Dimer 3.06 ug/mLFEU (0-0.59) H 04/15/25 10:04 Sodium 135 mmol/L (136-145) L 04/16/25 02:09 Potassium 3.3 mmol/L (3.5-5.1) L 04/16/25 02:09 Chloride 100 mmol/L (98-107) 04/16/25 02:09 Carbon Dioxide 26 mmol/L (22-29) 04/16/25 02:09 Anion Gap 12.3 (5-19) 04/16/25 02:09 BUN 14 mg/dL (8-23) 04/16/25 02:09 Creatinine 0.7 mg/dL (0.5-0.9) 04/16/25 02:09 GFR Calculation Not Reportable 04/16/25 02:09 Glucose 110 mg/dL (65-115) 04/16/25 02:09 Estimat Average Glucose 111 04/15/25 10:04 Hemoglobin A1c 5.5 % (4.0-6.0) 04/15/25 10:04 Calculated Osmolality 281 mOsm/kg (285-295) L 04/16/25 02:09 Calcium 9.1 mg/dL (8.5-10.5) 04/16/25 02:09 Magnesium 1.9 mg/dL (1.7-2.3) 04/16/25 02:09 Total Bilirubin 0.5 mg/dL (0.15-1.2) 04/16/25 02:09 AST 18 U/L (0-32) 04/16/25 02:09 ALT 8 U/L (0-33) 04/16/25 02:09 Alkaline Phosphatase 27 U/L (35-105) L 04/16/25 02:09 Troponin T Baseline 12 ng/L (0-10) H 04/15/25 10:04 Troponin T 120 Minute 41.21 ng/L (0-10) H 04/15/25 12:12 Delta Troponin T 29.21 ABS# (0-10) H* 04/15/25 12:12 Troponin T Hi Sens 6Hr 73.66 ng/L (0-10) H 04/15/25 16:07 Troponin T Hi Sens 6Hr Delta 61.66 ng/L (0-12) H* 04/15/25 16:07 NT-Pro-B Natriuret Pep 1198 pg/mL (0-450) H 04/15/25 10:04 Total Protein 6.8 g/dL (6.6-8.7) 04/16/25 02:09 Albumin 3.7 g/dL (3.5-5.2) 04/16/25 02:09 Globulin 3.1 g/dL (1.3-4.6) 04/16/25 02:09 Triglycerides 94 mg/dL (0-150) 04/15/25 10:04 Cholesterol 208 mg/dL (0-200) H 04/15/25 10:04 LDL Cholesterol, Calc 129 mg/dL (50-129) 04/15/25 10:04 HDL Cholesterol 60 mg/dL (60-100) 04/15/25 10:04 LDL/HDL Ratio 2.15 RATIO (0.00-3.22) 04/15/25 10:04 Cholesterol/HDL Ratio 3.47 mg/dL (0.0-4.40) 04/15/25 10:04 TSH 3.92 uIU/mL (0.27-4.20) 04/15/25 10:04 Urine Color Yellow (Yellow) 04/15/25 09:58 Urine Appearance Clear (CLEAR) 04/15/25 09:58 Urine pH 7 (5-7) 04/15/25 09:58 Ur Specific [place] 1.007 (1.005-1.030) 04/15/25 09:58 Urine Protein Negative (Negative) 04/15/25 09:58 Urine Glucose (UA) Norm (Normal) 04/15/25 09:58 Urine Ketones Negative (Negative) 04/15/25 09:58 Urine Blood Non-haemolysed trace (Negative) 04/15/25 09:58 Urine Nitrate Negative (Negative) 04/15/25 09:58 Urine Bilirubin Negative (Negative) 04/15/25 09:58 Urine Urobilinogen 1.0 mg/dL (Negative) 04/15/25 09:58 Ur Leukocyte Esterase 1+ (Negative) H 04/15/25 09:58 Urine RBC None /hpf (0-2) 04/15/25 09:58 Urine WBC 0-4 /hpf (0-5) H 04/15/25 09:58 Ur Squamous Epith Cells 0-4 /hpf (0-5) H 04/15/25 09:58 Amorphous Sediment Not Reportable 04/15/25 09:58 Urine Bacteria Trace /hpf (NONE) 04/15/25 09:58 Vitals Last Vital Signs Temp 97.9 F 04/16/25 08:00 Pulse 59 L 04/16/25 13:40 Resp 19 H 04/16/25 12:00 BP 150/61 04/16/25 12:00 Pulse Ox 97 04/16/25 12:00 O2 Del Method Room Air 04/16/25 09:29 Discharge Plan Discharge Patient Disposition: Home Condition: Stable Prescriptions: New atorvastatin 40 mg Tablet 40 mg PO BEDTIME Qty: 30 0RF Continued acetaminophen [Tylenol] 325 mg Tablet 650 mg PO QID PRN (Reason: Fever Or Pain) fexofenadine [Verenice Allergy] 60 mg Tablet 60 mg PO BID PRN (Reason: allergies) pantoprazole 40 mg tablet,delayed release (DR/EC) 40 mg PO DAILY [id number] carb-K1 400 mcg-500 mg calcium-20 mcg Tablet 1 tab PO DAILY aspirin [Christian Low Dose Aspirin] 81 mg Tablet,Delayed Release (Dr/Ec) 81 mg PO DAILY Qty: 30 0RF Discontinued metoprolol succinate 50 mg tablet extended release 24 hr 50 mg PO DAILY No Action metoprolol succinate 25 mg tablet extended release 24 hr 12.5 mg PO BID Qty: 45 1RF olmesartan 20 mg tablet 20 mg PO DAILY Qty: 90 1RF Discharge Order = DC NOW: Discharge Order (Routine); Ordered 04/16/25 Ordered By: Isela Hsieh Referrals: [facility] [Outside] - 1-3 days Referral Note: achalasia, zenker's diverticulum Please call the office tomorrow for appt, needs to review visit information. faxed information to office 04/16 Lisa Arevalo FNP [Primary Care Provider, Unknown] - 04/24/25 11:00 am Duncan Bustillos MD [Physician, Ear, Nose, Throat] - 05/14/25 7:50 am Referral Note: You have an appointement with Dr Bustillos on May 14 at 7:50am. Charlie Tellez MD [Physician, Cardiology] - 04/27/25 10:30 am Discharge Diet: Usual diet Discharge Activity: Resume usual activity Patient Instructions: Amlodipine (By mouth), Atorvastatin (By mouth), Opioid Safety, Patient Portal & Leigh Instructions Discharge Attestations Time Spent in Discharge Care*: less than 30 min Quality Metrics Clinical Quality Measures [ No reported AMI, CVA or VTE this stay] Coding Level of Care Code Acute Code for Chg Fwd Diagnoses Acute non-ST elevation myocardial infarction (NSTEMI) I21.4 Hypertensive crisis I16.9 Pulmonary nodule R91.1 Zenkers diverticulum K22.5 Achalasia K22.0
--- NOTE | 2025-04-16 16:22 | PC.NURSE ---
Patient discharged to home. Instructions provided regarding follow up information with medication changes. Patient verbalized complete understanding. Patient denies pain, nausea or needs. No distress observed. Patient taken by wheelchair to private vehicle. New Rx transmitted to [facility].
--- NOTE | 2025-04-16 18:25 | NMCV_ITS ---
NM sam perf SPECT r/s* [id number] Robina Bowen Age: 85 Gender: F : 1940 Exam Date: 04/16/2025 07:13 Ordering Phys: Isela Hsieh MD Technologist: KYLER Brantley Exam Location: [facility] Indications: cp STRESS TEST Please see separate stress test report in [facility] for full findings IMAGE PROTOCOL Rest/Stress 1 Lexiscan Day Radiopharmaceutical Dose (mCi) Administration Site Administered by Rest: Tc-99m 10.4 IV KYLER Brantley Sestamibi Stress:Tc-99m 32.6 IV KYLER Chirinos Sestamibi Rest: 16-Apr-2025 60 Discovery 630 Stress: 16-Apr-2025 30 Discovery 630 0.4mg Lexiscan. Supine position only as patient was unable to lay prone. Patient unable to lay prone because of pain from hiatel hernia. SPECT RESULTS Technical Quality: Good Raw Data Analysis: Normal Image Corrections: No attenuation or motion correction applied Summed Stress Score: 0 Summed Rest Score: 0 Summed Difference Score: 0 PERFUSION FINDINGS SPECT images demonstrate homogeneous tracer distribution throughout the myocardium. FUNCTIONAL RESULTS (calculated via Gated SPECT) Stress Image LV EF (%): 74 Stress EDV (mL):72 TID: 0.85 Stress ESV (mL):19 FUNCTIONAL FINDINGS: There is normal left ventricular systolic function. IMPRESSIONS Myocardial perfusion imaging is normal. Roula Chavis MD (Electronically Signed) Final Date: 16 April 2025 11:44 S
== END 2025-04-16 16:24 | disposition home or self-care (01) | DRG 282 ==
LOC: ER 15:15 → CSU 16:23
PROVIDERS: Admitting Provider Internal Medicine; Emergency Provider Emergency Medicine; PCP Nurse Practitioner Family; Visit Provider Internal Medicine
DX: I16.0 Hypertensive urgency (principal); I21.4 Non-ST elevation (NSTEMI) myocardial infarction; R91.1 Solitary pulmonary nodule; K22.5 Diverticulum of esophagus, acquired; K44.9 Diaphragmatic hernia without obstruction or gangrene; K22.0 Achalasia of cardia; R30.0 Dysuria; R00.1 Bradycardia, unspecified; I67.1 Cerebral aneurysm, nonruptured; K21.9 Gastro-esophageal reflux disease without esophagitis; Z79.82 Long term (current) use of aspirin
CPT/HCPCS: 36415; 71275; 74175; 78452; 80048; 80053; 80061; 81001; 83036; 83735; 83880; 84443; 84484; 85025; 85378; 85610; 85730; 93005; 93017; 93306; 96374; 96375; 96376; 99285; A9500; J0360; J1644; J2405; J2765; J2785; J7030; J9999

== ENCOUNTER → 2025-04-27 10:15 | Outpatient (BNVA) | payer MEDICARE, OTHER, SELFPAY | PROVIDERS: PCP Nurse Practitioner Family; Visit Provider Internal Medicine Cardiovascular Disease | DX: I10 Essential (primary) hypertension (principal); I25.2 Old myocardial infarction; R00.1 Bradycardia, unspecified; Z87.891 Personal history of nicotine dependence | CPT/HCPCS: 99214 ==

== ENCOUNTER → 2025-06-13 08:59 | Outpatient (BNVA) | payer MEDICARE, OTHER, SELFPAY | PROVIDERS: PCP Nurse Practitioner Family; Visit Provider Internal Medicine Cardiovascular Disease | DX: I16.9 Hypertensive crisis, unspecified (principal); I10 Essential (primary) hypertension; I25.2 Old myocardial infarction; R00.1 Bradycardia, unspecified; G47.19 Other hypersomnia; Z87.891 Personal history of nicotine dependence; R40.0 Somnolence | CPT/HCPCS: 99214 ==

== ENCOUNTER 2025-07-11 12:45 | Outpatient (CLI) | payer MEDICARE, OTHER, SELFPAY | END 2025-07-11 12:46 | disposition home or self-care (01) | LOC: SLEEP 12:47 | PROVIDERS: PCP Nurse Practitioner Family; Referring Provider Nurse Practitioner Family; Visit Provider Internal Medicine Pulmonary Disease | DX: G47.33 Obstructive sleep apnea (adult) (pediatric) (principal); R40.0 Somnolence | CPT/HCPCS: G0399 ==

== ENCOUNTER → 2025-08-14 07:49 | Outpatient (BNVA) | payer MEDICARE, OTHER, SELFPAY | PROVIDERS: PCP Nurse Practitioner Family; Visit Provider Nurse Practitioner Family | DX: I10 Essential (primary) hypertension (principal); G47.33 Obstructive sleep apnea (adult) (pediatric); I49.9 Cardiac arrhythmia, unspecified; K22.5 Diverticulum of esophagus, acquired; Z87.891 Personal history of nicotine dependence | CPT/HCPCS: 99214 ==